=== PATIENT | male | born 1990 | race Caucasian/White ===

== ENCOUNTER 2024-02-06 08:37 | Outpatient (AMB) | payer MEDICAID, SELFPAY ==
--- NOTE | 2024-02-06 08:47 | RHCORTHONT_ITS ---
Vital signs 02/06/24 08:50 Height 1.83 m Height Method Stated Weight 91.172 kg Weight Measurement Method Standing Scale BMI 27.2 BP 134/87 H Blood Pressure Source Automatic Cuff Blood Pressure Location Right Upper Arm Position Sitting Respiration 19 Pulse 87 Pulse Source Monitor Temp 97.5 F Temp Source Temporal Artery Scan Pulse Oximetry (%) 98 Oxygen Delivery Method Room Air Med/Allergies Allergies & Medications Allergies No Known Drug Allergies Allergy (Verified 02/06/24 08:50) Medication Reconciliation naproxen sodium 220 mg capsule 220 mg PO BID PRN 02/06/24 [History Confirmed 02/06/24] Exam Exam Patient is in no acute distress and is cooperative with the examination today. Patient has a normal mood and affect. Breathing is nonlabored. In no respiratory distress. Bilateral extremities were evaluated and demonstrates sensation intact to light touch. Palpable pedal pulses are present. No significant edema is present. Right knee Range of motion is 10 to 95 degrees. He is tender to palpation medially and laterally. He has a positive Coleen's and a positive Gilmer's.The knee feels stable to varus and valgus stress Left knee range of motion is 0 to 115 degrees. The patient has a Negative Coleen's and Gilmer's X-rays from [facility] show no significant pathology. There is no evidence of fracture Assessment and Plan Problem List (1) Complete tear of anterior cruciate ligament of right knee: Status: Acute Plan: Bishop is a 33-year-old male with significant right and left knee pain. His range of motion is significantly limited and he has an effusion with joint line tenderness as well as positive ACL signs. I would like to get an MRI of both the right and left knee actually. His significant gait limitations and I have high suspicion for either meniscal as well as a likely ACL tear.We will see him back after his MRI is done (2) Tear of meniscus of left knee: Status: Acute Office Procedures GNS Level of Care Nursing/Assessment Patient Status: Initial/New Patient Nursing Assessment/Reassesment: Medication Reconciliation, Update PMH in EMR and Vital Signs Coordination of Care: Complex Care and Chronic Disease 1-5, Education Complex Pt/Fam, Consent,records obtained, informed consent, Results/Orders obtained and Staff clarify orders New Patient Charge New Patient Point Assignment: 1094 New Patient Point Charge: [employer] Level 3 ([id number]) GIORGIO Intake Visit Data Collection New Patient or Established: Established Patient (seen at [facility] within 3 years) Reason for Visit:: KNEE PAIN Seen by Clinical Staff ONLY (RN/MA): No Verbal consent obtained for Telemed visit?: No Intake Clinician Required: No PCP or OBGYN visit in last 3 months: Yes Hx Now: No Do You Feel Safe at Home: Yes Authorities Contacted: N/A Questionairres Past Medical History Past Medical History Have you ever been diagnosed with any of the following: Respiratory Problems Smoking: Yes Smoking Exposure: Yes Subjective Visit Visit for: new patient and knee Immunization / Flu Flu Vaccine in the Last 12 Months: No Flu Vaccine Exclusion Criteria: Refused by Patient History of Present Illness Chief complaint: KNEE PAIN Bishop is a pleasant 33-year-old male with right and left knee pain. The right knee pains been excruciating for the last month. He has difficulty walking and reports that his knee feels like it is stiff and unstable. He is walking with a significant limp and is using a brace. He has a knee effusion as well. He went to the knee emergency room and they told he had no fracture.Ordered but this injury did not occur when skating. He has a history of 2 prior surgeries on his left knee.His left knee pain is more chronic Personal History Occupation: UNEMPLOYED Red flag PMH: smoker BMI Counceling provided: Yes Pain Pain level (0-10): 7 Pain duration: CONSTANT Pain location: inside (medial), outside (lateral) and posterior Pain quality: sharp and aching Pain timing: night and increases with activity Associated signs & symptoms: none Ambulatory data Ambulatory device: other (specify) (KNEE BRACE) Treatments Improvement with previous injections: No Improvement with PT: No Improvement with NSAIDS: no Review of Systems Review of Systems: All systems negative unless otherwise noted in HPI.
[2024-02-06 08:50] VITALS: BP 134/87; PULSE 87; RESP 19; TEMP 36.4; O2SAT 98; BMI 27.2
== END 2024-02-06 09:13 | disposition home or self-care (01) ==
PROVIDERS: PCP Internal Medicine; Referring Provider Internal Medicine; Supervising Provider Orthopaedic Surgery Adult Reconstructive Orthopaedic Surgery; Visit Provider Orthopaedic Surgery Adult Reconstructive Orthopaedic Surgery
DX: S83.511D Sprain of anterior cruciate ligament of right knee, subsequent encounter (principal); S83.207D Unspecified tear of unspecified meniscus, current injury, left knee, subsequent encounter; X58.XXXD Exposure to other specified factors, subsequent encounter; M25.562 Pain in left knee; M25.561 Pain in right knee; M25.469 Effusion, unspecified knee
CPT/HCPCS: 99203; G0463

== ENCOUNTER → 2024-04-09 | Outpatient (CLI) | payer MEDICAID, SELFPAY ==
--- NOTE | 2024-04-09 10:00 | XR_ITS ---
Exam: MRI knee without contrast, right Date and time of exam: April 09, 2024 11:10 AM INDICATIONS: Meniscus tear occurring injury left knee initial encounter, sprain anterior cruciate ligament right knee initial encounter, injury to the knee October 26, 2023 joint locking Technique: Multiple axial, coronal, and sagittal sections on the knee have been obtained. T2-Weighted sagittal, fat-suppressed images, TR 3,500, TE 62, T2 weighted coronal fat-saturated images, TR 3,500, TE 62 Proton density sagittal sections, TR 1800, TE 31. T-1 weighted coronal images, TR 524, TE 13.0 Findings: Medial meniscus anterior horn horizontal linear tear communicating superior articular surface. Medial meniscus, body is intact. Posterior horn medial meniscus intact. Lateral meniscus anterior horn is intact Lateral meniscus, body is intact Posterior horn lateral meniscus is intact Anterior cruciate ligament moderate sprain Posterior cruciate ligament appears intact. Knee effusion is mild. Quadriceps and patellar tendons appear intact. There is no evidence of tendinosis. Diffuse edema involving the patella Inflammatory change or fracture of Hoffa's fat pad is not seen. Medial patellar facet demonstrates no thinning. Lateral patellar facet cartilage demonstrates no thinning. Trochlear cartilage demonstrates no thinning. Marrow signal also increased proximal lateral tibial metaphyseal region. Medial collateral ligament appears intact. No meniscocapsular separation is seen. Illiotibial band and fibular collateral ligament are intact. Biceps femoris tendons appear intact. Medial femoral condylar articular cartilage demonstrates no thinning. Lateral femoral condylar articular cartilage demonstratesno thinning. Tibial plateau cartilage demonstrates no thinning. Impression: Moderate sprain anterior cruciate ligament Horizontal linear tear anterior horn medial meniscus Diffuse marrow edema involving the patella, clinical correlation advised
== END | disposition home or self-care (01) ==
PROVIDERS: PCP Orthopaedic Surgery Adult Reconstructive Orthopaedic Surgery; Referring Provider Orthopaedic Surgery Adult Reconstructive Orthopaedic Surgery; Visit Provider Orthopaedic Surgery Adult Reconstructive Orthopaedic Surgery
DX: S83.511A Sprain of anterior cruciate ligament of right knee, initial encounter (principal); S83.241A Other tear of medial meniscus, current injury, right knee, initial encounter; X58.XXXA Exposure to other specified factors, initial encounter; M25.461 Effusion, right knee
CPT/HCPCS: 73721

== ENCOUNTER 2024-05-05 14:24 | Outpatient (AMB) | payer MEDICAID, SELFPAY ==
--- NOTE | 2024-05-05 14:22 | PD.ORTHTELE ---
Med/Allergies Allergies & Medications Allergies No Known Drug Allergies Allergy (Verified 05/05/24 14:22) Medication Reconciliation naproxen sodium 220 mg capsule 220 mg PO BID PRN 02/06/24 [History Confirmed 05/05/24] Subjective Visit Visit for: follow up visit and MRI Immunization / Flu Flu Vaccine in the Last 12 Months: No Flu Vaccine Exclusion Criteria: No Exclusion Criteria History of Present Illness Chief complaint: F/U MRI RESULTS Bishop is a pleasant 33-year-old male with right and left knee pain. The right knee pains been excruciating for the last month. He has difficulty walking and reports that his knee feels like it is stiff and unstable. He is walking with a significant limp and is using a brace. He has a knee effusion as well. He went to the knee emergency room and they told he had no fracture.Ordered but this injury did not occur when skating. He has a history of 2 prior surgeries on his left knee.His left knee pain is more chronic. Pain Pain level (0-10): 6 Pain duration: ALL DAY Pain location: inside (medial), outside (lateral), anterior and posterior Pain quality: sharp, dull and aching Pain timing: increases with activity Associated signs & symptoms: none Ambulatory data Ambulatory device: none Treatments Improvement with previous injections: No Improvement with PT: No Improvement with NSAIDS: no Review of Systems Review of Systems: All systems negative unless otherwise noted in HPI. Assessment and Plan Problem List (1) Complete tear of anterior cruciate ligament of right knee: Status: Acute Plan: Bishop is a 33-year-old male with significant right and left knee pain. He was found to have an anterior horn meniscus tear. I discussed with him that my practice is primarily joint replacement. I would recommend that he see a sports surgeon for a meniscal repair is I do not do a lot of these. We recommend referral to a Sports surgeon who does a lot of meniscal repairs as I do not do many of these (2) Tear of meniscus of left knee: Status: Acute Office Procedures GNS Level of Care Nursing/Assessment Patient Status: Established Patient Nursing Assessment/Reassesment: Medication Reconciliation, Update PMH in EMR and Vital Signs Coordination of Care: Complex Care and Chronic Disease 1-5, Education Complex Pt/Fam, Consent,records obtained, informed consent, Results/Orders obtained and Staff clarify orders Established Patient Charge Established Patient Point Assignment: 95 Telehealth Telemed Phone/Video with patient at home & Dr,PA,KILN OPERATOR: Yes
== END 2024-05-05 14:32 | disposition home or self-care (01) ==
PROVIDERS: Supervising Provider Orthopaedic Surgery Adult Reconstructive Orthopaedic Surgery; Visit Provider Orthopaedic Surgery Adult Reconstructive Orthopaedic Surgery
DX: S83.511A Sprain of anterior cruciate ligament of right knee, initial encounter (principal); S83.207A Unspecified tear of unspecified meniscus, current injury, left knee, initial encounter; X58.XXXA Exposure to other specified factors, initial encounter
CPT/HCPCS: 99212; G0463